=== PATIENT | female | born 1995 | race Native Hawaiian/Other Pacific Islander ===

== ENCOUNTER 2018-03-19 01:32 | Outpatient (CLI) | payer BC, OTHER ==
[2018-03-19 06:10] LABS: BASOPHILS % (AUTO) 0.3 % (0.0-2.0); EOSINOPHILS # (AUTO) 0.2 K/uL (0.0-0.7); EOSINOPHILS % (AUTO) 1.5 % (0.0-7.0); HEMATOCRIT 41.9 % (31.2-41.9); HEMOGLOBIN 14.2 g/dL (10.9-14.3); LYMPHOCYTES % (AUTO) 39.5 % (20.5-51.5); MEAN CORPUSCULAR HEMOGLOBIN 28.6 uug (24.7-32.8); MEAN CORPUSCULAR HGB CONC 34 g/dL (32.3-35.6); MEAN CORPUSCULAR VOLUME 84.3 fL (75.5-95.3); MONOCYTES # (AUTO) 0.6 K/uL (2.0-10.0); MONOCYTES % (AUTO) 6.3 % (0.0-11.0); NEUTROPHILS # (AUTO) 5.3 K/uL (1.8-8.9); NEUTROPHILS % (AUTO) 52.4 % (38.5-71.5); PLATELET COUNT (AUTO) 323 K/uL (179-408); RED BLOOD CELL COUNT(AUTO) 4.97 MIL/uL (3.63-4.92); WHITE BLOOD COUNT (AUTO) 10.1 K/uL (3.8-11.8)
[2018-03-19 06:24] LABS: BILIRUBIN,TOTAL 0.4 mg/dL (0.2-1.0); CREATININE 0.6 mg/dL (0.6-1.3); POTASSIUM 3.6 mmol/L (3.5-5.1); TOTAL PROTEIN, SERUM 8.3 g/dL (6.4-8.2)
== END 2018-03-19 23:59 | disposition home or self-care (01) ==
LOC: LAB 01:32
PROVIDERS: ATTEND Family Medicine
DX: L40.0 Psoriasis vulgaris (principal)
CPT/HCPCS: 36415; 85025

== ENCOUNTER 2018-06-03 22:20 | Emergency (ER) | payer BC, OTHER ==
--- NOTE | 2018-06-03 22:29 | NUR ---
DECIDED NOT TO BE SEEN. [id number]
== END 2018-06-03 22:30 | disposition left against medical advice (07) ==
LOC: ER 22:22
DX: Z53.21 Procedure and treatment not carried out due to patient leaving prior to being seen by health care provider (principal)